=== PATIENT | male | born 1970 ===

== ENCOUNTER → 2018-12-23 21:07 | Outpatient (REF) | payer OTHER, SELFPAY ==
[2018-12-24 00:16] LABS: Cholesterol 218 mg/dL (140-199); HDL Cholesterol 31 mg/dL (40-60); Triglycerides 415 mg/dL (35-150)
== END ==
LOC: LAB 21:07
PROVIDERS: Visit Provider Family Medicine
DX: E78.00 Pure hypercholesterolemia, unspecified (principal)
CPT/HCPCS: 36415; 80061